=== PATIENT | male | born 1990 | race Caucasian/White ===

== ENCOUNTER 2024-12-03 12:19 | Emergency (ER) | payer OTHER, MEDICAID ==
[~2024-12-03] VITALS: Ht 170.2 cm; Wt 113.3 kg
[2024-12-03 12:22] VITALS: O2SAT 97
[2024-12-03 12:50] VITALS: TEMP 36.9; O2SAT 99
[2024-12-03 13:42] VITALS: BP 141/85; PULSE 62; RESP 16
[2024-12-03] MEDS: KETOROLAC 30MG/ML VIAL IM STA (13:42)
== END 2024-12-03 14:14 | disposition home or self-care (01) ==
LOC: ER 12:19
DX: S06.0XAA Concussion with loss of consciousness status unknown, initial encounter (principal); Z90.49 Acquired absence of other specified parts of digestive tract; W10.9XXA Fall (on) (from) unspecified stairs and steps, initial encounter; Y93.89 Activity, other specified; Y92.89 Other specified places as the place of occurrence of the external cause; Y99.8 Other external cause status
CPT/HCPCS: 99283; 96372; J1885